=== PATIENT | male | born 1930 | race Caucasian/White ===

== ENCOUNTER 2021-06-28 22:25 | Emergency (ER) | payer MEDICARE, BC ==
[2021-06-28] MEDS ORDERED: Lidocaine 1% w/Epinephrine 1:100K 20 ML VIAL ONE ×2 (23:47→23:49)
[2021-06-29] MEDS ORDERED: Bacitracin 1 PK ONE (00:36)
== END 2021-06-29 00:45 | disposition home or self-care (01) ==
LOC: ERS 22:25
DX: S01.01XA Laceration without foreign body of scalp, initial encounter (principal); I10 Essential (primary) hypertension; Z87.891 Personal history of nicotine dependence; W19.XXXA Unspecified fall, initial encounter
CPT/HCPCS: 70450